=== PATIENT | female | born 1995 | race Two or more races ===

== ENCOUNTER 2021-09-30 00:53 | Emergency (ER) | payer OTHER ==
[~2021-09-30] VITALS: Ht 167.6 cm; Wt 67.1 kg
--- NOTE | 2021-09-30 02:11 | NUR ---
PER C/O CAT BITE ON L HAND @5PM. LAST TDAP 4-5 YEARS AGO.
[2021-09-30] MEDS ORDERED: PIPERACILLIN /TAZOBACTAM 3.375 G VIAL IV ONE (02:37)
[2021-09-30] MEDS: PIPERACILLIN /TAZOBACTAM 3.375 G in IV D5W 50 ML IV ONE (02:45)
[2021-09-30] MEDS ORDERED: AMOX-430 PO (03:08)
--- NOTE | 2021-09-30 03:43 | NUR ---
Patient discharged to home in stable condition. Written and verbal after care instructions given. Patient verbalizes understanding of instruction.
[2021-09-30 04:11] VITALS: BP 122/68
== END 2021-09-30 04:11 | disposition home or self-care (01) ==
LOC: ER 01:02
DX: S61.432A Puncture wound without foreign body of left hand, initial encounter (principal); W55.01XA Bitten by cat, initial encounter; Y93.89 Activity, other specified; Y92.89 Other specified places as the place of occurrence of the external cause; Y99.8 Other external cause status
CPT/HCPCS: 73130; 96365; 99284; J2543 ×2; J7060